=== PATIENT | male | born 1965 | race Caucasian/White ===

== ENCOUNTER 2018-02-19 18:10 | Emergency (ER) | payer SELFPAY ==
[2018-02-19] MEDS ORDERED: CLINDAMYCIN 900MG/D5W 900 MG/50 ML BAG IV ONE (19:36)
[2018-02-19] MEDS ORDERED: MORPHINE 4 MG/ML SYR ONE (19:36)
[2018-02-19] MEDS ORDERED: NA CHLORIDE 0.9% 1,000 ML ONE (19:36)
[2018-02-19] MEDS ORDERED: ONDANSETRON 4 MG/2 ML VIAL ONE (19:36)
[2018-02-19 19:50] LABS: Absolute Lymphocytes (CBC) 1.9 K/uL (0.7-4.9); Absolute Monocytes 0.7 K/uL (0.1-1.3); Absolute Neutrophil 4.6 K/uL (1.8-8.0); Basophils % 0.7 % (0-1.3); Eosinophils % 2.8 % (0-4.4); Hematocrit 35.8 % (39.6-49.0); Lymphocytes % 25.7 % (15.3-44.8); MCH 29.6 pg (27.0-35.0); MCV 86.4 fL (80-100); MPV 8.8 fL (7.6-11.3); RBC Red Blood Cell Count 4.14 M/uL (4.33-5.43)
[2018-02-19 19:53] LABS: Potassium 3.8 mEq/L (3.6-5.0)
--- NOTE | 2018-02-19 20:55 | EDPHYS ---
Physician Documentation [facility] Name: Mark Burgess Age: 52 yrs Sex: Male : 1965 Arrival Date: 02/19/2018 Time: 18:16 Bed 17 Private MD: ED Physician Brandon Ackerman HPI: 02/19 19:35 This 52 yrs old Male presents to ER via Ambulatory with complaints of cp Toothache. 19:35 The patient presents with pain. The problem is located in the right upper tooth. Onset: cp The symptoms/episode began/occurred gradually. Duration: The symptoms are continuous, and are steadily getting worse. Associated signs and symptoms: Pertinent positives: swelling, facial, Pertinent negatives: anorexia, fever, inability to eat. Severity of symptoms: in the emergency department the symptoms are unchanged, despite home interventions. Historical: - Allergies: 18:18 No Known Allergies; lk1 - PMHx: 18:18 sepsis; Hypertension; Myocardial infarction; CVA; lk1 - PSHx: 18:18 CABG; Hernia repair; back surgery; lk1 - Immunization history:: Adult Immunizations up to date. - Social history:: Smoking status: Patient uses tobacco products, chewing tobacco. ROS: 19:45 Constitutional: Negative for body aches, chills, fever, poor PO intake. cp 19:45 Eyes: Negative for injury, pain, redness, and discharge. cp 19:45 ENT: Positive for dental pain, Negative for drainage from ear(s), ear pain, sore throat, difficulty swallowing, difficulty handling secretions. 19:45 Cardiovascular: Negative for chest pain, edema, palpitations. 19:45 Respiratory: Negative for cough, shortness of breath, wheezing. 19:45 Abdomen/GI: Negative for abdominal pain, nausea, vomiting, and diarrhea, constipation, anorexia, black/tarry stool, rectal bleeding. 19:45 Skin: Positive for swelling, of the right facial cheek area, Negative for rash. 19:45 Neuro: Negative for altered mental status, headache, weakness. 19:45 All other systems are negative. Exam: 19:50 Constitutional: The patient appears in no acute distress, alert, awake, non-toxic, well cp developed, well nourished. 19:50 Head/face: Noted is swelling, that is mild, of the right cheek, tenderness, that is cp moderate, of the right cheek, Sinus tenderness, is not appreciated. 19:50 Eyes: Periorbital structures: appear normal, Pupils: equal, round, and reactive to light and accomodation, Extraocular movements: intact throughout, Conjunctiva: normal, no exudate, no injection, Sclera: no appreciated abnormality, Lids and lashes: appear normal, bilaterally. 19:50 ENT: External ear(s): are unremarkable, Ear canal(s): are normal, clear, TM's: bulging, is not appreciated, bilaterally, dullness, bilaterally, erythema, is not appreciated, bilaterally, Nose: is normal, Mouth: Lips: moist, Oral mucosa: pink and intact, moist, Gums: pink, Tongue: is normal, abscess, is not appreciated, Posterior pharynx: Airway: no evidence of obstruction, patent, Tonsils: are normal in appearance, Uvula: midline, swelling, is not appreciated, erythema, is not appreciated, exudate, is not appreciated, Dental exam: abscess, is not appreciated, dental caries, that is moderate, diffusely, gum swelling, not appreciated, pain, that is mild, specifically in the upper right cuspid (#6), Voice: is normal. 19:50 Neck: ROM/movement: is normal, is supple, without pain, no range of motions limitations, no nuchal rigidity, Lymph nodes: no appreciated lymphadenopathy. 19:50 Chest/axilla: Inspection: normal. 19:50 Cardiovascular: Rate: normal, Rhythm: regular. 19:50 Respiratory: the patient does not display signs of respiratory distress, Respirations: normal, no use of accessory muscles, no retractions, no splinting, no tachypnea. 19:50 Abdomen/GI: Exam negative for discomfort, distension, guarding, Inspection: abdomen appears normal. 19:50 Back: pain, is absent, ROM is normal. 19:50 Skin: no rash present. 19:50 Neuro: Orientation: to person, place \T\ time. Mentation: lucid, able to follow commands, Cerebellar function: is grossly normal, Motor: moves all fours, strength is normal, Sensation: no obvious gross deficits. Vital Signs: 18:19 BP 142 / 95; Pulse 91; Resp 16; Temp 97.4(TE); Pulse Ox 97% on R/A; Weight 117.93 kg lk1 (R); Height 6 ft. 2 in. (187.96 cm) (R); Pain 9/10; 18:38 BP 190 / 90; Pulse 98; Resp 18; Pulse Ox 96% on R/A; Pain 9/10; hb 19:26 BP 178 / 84; Pulse 103; Resp 18; Pulse Ox 95% ; bp 20:00 BP 111 / 48; Pulse 97; Resp 14; Pulse Ox 98% ; bp 20:52 BP 144 / 77; Pulse 100; Resp 14; Pulse Ox 98% ; bp 18:19 Body Mass Index 33.38 (117.93 kg, 187.96 cm) lk1 MDM: 18:41 Patient medically screened. cp 19:30 Differential diagnosis: dental caries, gingivitis, dental abscess, pericoronitis, cp gingivostomatitis. 20:53 Data reviewed: vital signs, nurses notes, lab test result(s), and as a result, I will cp discharge patient. 20:53 Response to treatment: the patient's symptoms have mildly improved after treatment, and cp as a result, I will discharge patient. 02/19 19:28 Order name: CBC with Diff; Complete Time: 20:07 cp 02/19 20:08 Interpretation: Normal except: RBC 4.14; HGB 12.2; HCT 35.8; PLT 130. cp 02/19 19:28 Order name: BMP; Complete Time: 20:07 cp 02/19 20:08 Interpretation: Normal except: CA 8.4; GFR 68. cp 02/19 19:28 Order name: Blood Culture Adult (2) cp 02/19 19:28 Order name: IV; Complete Time: 19:47 cp Administered Medications: 19:45 Drug: Clindamycin 900 mg Route: IVPB; Infused Over: 30 mins; Site: right wrist; bp 19:46 Drug: NS 0.9% 1000 ml Route: IV; Rate: 1 bolus; Site: right wrist; bp 19:46 Drug: morphine 4 mg Route: IVP; Site: right wrist; bp 20:14 Follow up: Response: Pain is decreased bp 19:46 Drug: Zofran 4 mg Route: IVP; Site: right wrist; bp 20:13 Follow up: Response: No adverse reaction bp 21:23 Drug: [place] (7.5 mg-325 mg) 1 tabs Route: PO; bp 21:23 Follow up: Response: Medication administered at discharge. bp Disposition: 22:00 Chart complete. 02/20 18:41 Co-signature as Attending Physician, Brandon Ackerman MD. Disposition: 02/19/18 20:55 Discharged to Home. Impression: Cellulitis of face. - Condition is Stable. - Discharge Instructions: Cellulitis. - Prescriptions for Clindamycin HCl 300 mg Oral Capsule - take 1 capsule by ORAL route every 6 hours for 10 days; 40 capsule. Ibuprofen 800 mg Oral Tablet - take 1 tablet by ORAL route every 8 hours As needed take with food; 30 tablet. - Medication Reconciliation Form, Thank You Letter, Antibiotic Education, Prescription Opioid Use form. - Follow up: Private Physician; When: 48 Hours; Reason: Recheck today's complaints. - Problem is new. - Symptoms have improved. Signatures: Dispatcher [employer] EDMS Osmin Feliciano PA PA Natasha Davis RN RN lk1 Brandon Ackerman MD MD Barber Contreras RN RN Corrections: (The following items were deleted from the chart) 02/19 21:24 20:55 02/19/2018 20:55 Discharged to Home. Impression: Cellulitis of face. Condition is bp Stable. Forms are Medication Reconciliation Form, Thank You Letter, Antibiotic Education, Prescription Opioid Use. Follow up: Private Physician; When: 48 Hours; Reason: Recheck today's complaints. Problem is new. Symptoms have improved. cp 02/20 15:33 15:30 Constitutional: The patient appears in no acute distress, alert, awake, cp non-toxic, well developed, well nourished, cp 15:33 15:30 Head/face: Noted is swelling, that is mild, of the right cheek, tenderness, that cp is moderate, of the right cheek, Sinus tenderness, is not appreciated, cp 15:33 15:30 Eyes: Periorbital structures: appear normal, Pupils: equal, round, and reactive cp to light and accomodation, Extraocular movements: intact throughout, Conjunctiva: normal, no exudate, no injection, Sclera: no appreciated abnormality, Lids and lashes: appear normal, bilaterally, cp 15:33 15:30 ENT: External ear(s): are unremarkable, Ear canal(s): are normal, clear, TM's: cp bulging, is not appreciated, bilaterally, dullness, bilaterally, erythema, is not appreciated, bilaterally, Nose: is normal, Mouth: Lips: moist, Oral mucosa: pink and intact, moist, Gums: pink, Tongue: is normal, abscess, is not appreciated, Posterior pharynx: Airway: no evidence of obstruction, patent, Tonsils: are normal in appearance, Uvula: midline, swelling, is not appreciated, erythema, is not appreciated, exudate, is not appreciated, Voice: is normal, cp 15:33 15:30 Neck: ROM/movement: is normal, is supple, without pain, no range of motions cp limitations, no meningismus, no nuchal rigidity, Lymph nodes: no appreciated lymphadenopathy, cp 15:33 15:30 Chest/axilla: Inspection: normal, cp cp 15:33 15:30 Cardiovascular: Rate: normal, Rhythm: regular, JVD: is not appreciated, cp cp 15:33 15:30 Respiratory: the patient does not display signs of respiratory distress, cp Respirations: normal, no use of accessory muscles, no retractions, no splinting, no tachypnea, labored breathing, is not present, Breath sounds: are clear throughout, no decreased breath sounds, no stridor, no wheezing, cp 15:33 15:30 Abdomen/GI: Exam negative for discomfort, distension, guarding, Inspection: cp abdomen appears normal, cp 15:33 15:30 Neuro: Orientation: to person, place \T\ time. Mentation: lucid, able to follow cp commands, Cerebellar function: is grossly normal, Motor: moves all fours, strength is normal, Sensation: no obvious gross deficits, cp
--- NOTE | 2018-02-19 20:55 | ER ---
Nurse's Notes [facility] Name: Mark Burgess Age: 52 yrs Sex: Male : 1965 Arrival Date: 02/19/2018 Time: 18:16 Bed 17 Private MD: Diagnosis: Cellulitis of face Presentation: 02/19 18:16 Presenting complaint: Patient states: "I have a bad infection in my tooth. It happened lk1 before on the other side and it went to my brain and I got septic.". Transition of care: patient was not received from another setting of care. Onset of symptoms was February 18, 2018 at 20:00. Initial Sepsis Screen: Does the patient meet any 2 criteria? Does the patient have a suspected source of infection? Yes: Skin breakdown/wound. Care prior to arrival: None. 18:16 Method Of Arrival: Ambulatory lk1 18:16 Acuity: BRYON 3 lk1 Triage Assessment: 18:18 General: Appears in no apparent distress. Behavior is calm, cooperative, appropriate lk1 for age. Pain: Complains of pain in right eye and mouth Pain currently is 9 out of 10 on a pain scale. EENT: Lid(s) red and swollen lower right eyelid. Reports pain in right eye, right cheek and mouth. Historical: - Allergies: 18:18 No Known Allergies; lk1 - PMHx: 18:18 sepsis; Hypertension; Myocardial infarction; CVA; lk1 - PSHx: 18:18 CABG; Hernia repair; back surgery; lk1 - Immunization history:: Adult Immunizations up to date. - Social history:: Smoking status: Patient uses tobacco products, chewing tobacco. Screenin:29 Abuse screen: Denies threats or abuse. Denies injuries from another. Nutritional hb screening: No deficits noted. Tuberculosis screening: No symptoms or risk factors identified. Fall Risk None identified. Assessment: 18:30 General: Appears in no apparent distress. uncomfortable, Behavior is Reports right hb sided facial and upper right tooth pain 9/10 and swelling. Pain: Pain currently is 9 out of 10 on a pain scale. Neuro: Level of Consciousness is awake, alert, obeys commands, Oriented to person, place, time, situation. Cardiovascular: Heart tones S1 S2 present Capillary refill < 3 seconds Patient's skin is warm and dry. Respiratory: Airway is patent Trachea midline Respiratory effort is even, unlabored, Respiratory pattern is regular, symmetrical, Breath sounds are clear bilaterally. GI: No signs and/or symptoms were reported involving the gastrointestinal system. : No signs and/or symptoms were reported regarding the genitourinary system. EENT: No signs and/or symptoms were reported regarding the EENT system. Derm: Skin is intact, is healthy with good turgor, Skin is pink, warm \\T\\ dry. Musculoskeletal: No signs and/or symptoms reported regarding the musculoskeletal system. 19:00 Reassessment: RECD REPORT FROM LANA MORRIS. 52YO WM P/W DENTAL PAIN AND FACIAL SWELLING. bp PT SEEN BY PROVIDER, ORDERS PENDING. 20:00 Reassessment: PT RESTING QUIETLY, FAMILY AT B/S. IVF AND ABX INFUSING. bp 21:23 Reassessment: PT D/C HOME AMBULATORY WITH FAMILY, DX WITH FACIAL CELLULITIS. bp Vital Signs: 18:19 BP 142 / 95; Pulse 91; Resp 16; Temp 97.4(TE); Pulse Ox 97% on R/A; Weight 117.93 kg lk1 (R); Height 6 ft. 2 in. (187.96 cm) (R); Pain 9/10; 18:38 BP 190 / 90; Pulse 98; Resp 18; Pulse Ox 96% on R/A; Pain 9/10; hb 19:26 BP 178 / 84; Pulse 103; Resp 18; Pulse Ox 95% ; bp 20:00 BP 111 / 48; Pulse 97; Resp 14; Pulse Ox 98% ; bp 20:52 BP 144 / 77; Pulse 100; Resp 14; Pulse Ox 98% ; bp 18:19 Body Mass Index 33.38 (117.93 kg, 187.96 cm) lk1 ED Course: 18:16 Patient arrived in ED. lk1 18:17 Triage completed. lk1 18:21 Arm band placed on right wrist. lk1 18:29 Lana Mistry, RN is Primary Nurse. hb 18:29 Patient has correct armband on for positive identification. Bed in low position. Call hb light in reach. Side rails up X 1. 18:41 Osmin Feliciano PA is PHCP. cp 18:41 Brandon Ackerman MD is Attending Physician. cp 19:00 Primary Nurse role handed off by Lana Mistry, ALEXANDRA bp 19:00 Barber Contreras, RN is Primary Nurse. bp 19:35 Inserted saline lock: 20 gauge in right wrist, using aseptic technique. bp 21:24 No provider procedures requiring assistance completed. IV discontinued, intact, bp bleeding controlled, No redness/swelling at site. Pressure dressing applied. Administered Medications: 19:45 Drug: Clindamycin 900 mg Route: IVPB; Infused Over: 30 mins; Site: right wrist; bp 19:46 Drug: NS 0.9% 1000 ml Route: IV; Rate: 1 bolus; Site: right wrist; bp 19:46 Drug: morphine 4 mg Route: IVP; Site: right wrist; bp 20:14 Follow up: Response: Pain is decreased bp 19:46 Drug: Zofran 4 mg Route: IVP; Site: right wrist; bp 20:13 Follow up: Response: No adverse reaction bp 21:23 Drug: [place] (7.5 mg-325 mg) 1 tabs Route: PO; bp 21:23 Follow up: Response: Medication administered at discharge. bp Outcome: 20:55 Discharge ordered by MD. cp 21:24 Discharged to home ambulatory, with family. bp 21:24 Condition: stable 21:24 Discharge instructions given to patient, Instructed on discharge instructions, follow up and referral plans. medication usage, Demonstrated understanding of instructions, follow-up care, medications, Prescriptions given X 2. 21:24 Patient left the ED. bp Signatures: Osmin Feliciano PA PA cp Natasha Davis RN RN lk1 Lana Mistry RN RN Barber Contreras, RN RN bp
[2018-02-19] MEDS ORDERED: HYDROCODONE/APAP 7.5/325 MG TAB ONE (21:17)
== END 2018-02-19 21:24 | disposition home or self-care (01) ==
LOC: ER 18:10
DX: L03.211 Cellulitis of face (principal); F17.220 Nicotine dependence, chewing tobacco, uncomplicated
CPT/HCPCS: 36415; 80048; 85025; 87040; 96374; 96375; 99283; J2405; J7030